=== PATIENT | male | born 1960 | race Caucasian/White ===

== ENCOUNTER → 2019-07-29 14:55 | Outpatient (CLI) | payer OTHER, SELFPAY ==
--- NOTE | 2019-07-29 15:00 | CT_ITS ---
STUDY: CT ABDOMEN AND PELVIS WITHOUT CONTRAST REASON FOR EXAM: Male, 58 years old. [place] RADIATION DOSAGE (If Supplied By Facility): CTDIvol = ( 6.27 ) mGy, DLP = ( 304.08 ) mGycm TECHNIQUE: Transaxial images were obtained from the dome of the diaphragm to the symphysis pubis without oral contrast, and without intravenous contrast. Sagittal and coronal images were reconstructed. Individualized dose optimization techniques were used for this CT. COMPARISON: Comparison is made with prior examination dated December 30, 2011. FINDINGS: The visualized lung bases are unremarkable. The visualized portions of the heart are within normal limits. Stable cysts in the right and left lobe of the liver. The largest cyst is in the left lobe of the liver measuring 2 cm x 2 cm. Normal gallbladder and extrahepatic biliary system. Normal spleen. Normal pancreas. Normal bilateral adrenal glands. A punctate calculus is seen in the mid posterior aspect of the right kidney. There is a 7 mm calculus in the upper pole calyx of the left kidney. There is a 1.5 cm cyst in the lower pole of the left kidney with minimal peripheral calcification posteriorly. There is a small hiatal hernia. Normal small intestine. Normal colon. The appendix is visualized and appears normal. Normal abdominal aorta. Normal inferior vena cava. There is borderline retroperitoneal lymphadenopathy with enlarged nodes no greater than 10mm in the short axis diameter. Normal urinary bladder. Normal abdominal wall. There are degenerative changes of the visualized lumbar spine. CT/Abdomen/Pelvis without Cont IMPRESSION: Stable hepatic cysts. 7 mm calculus in the upper pole cortex of the left kidney. 1.5 cm cyst in the lower pole left kidney with minimal peripheral calcification posteriorly. Follow-up is recommended. Electronically Signed: Tino Charles, at 15:35 EDT , Service support ,
== END ==
PROVIDERS: Referring Provider Urology; Visit Provider Urology
DX: N20.1 Calculus of ureter (principal)
CPT/HCPCS: 74176

== ENCOUNTER 2020-05-22 12:43 | Emergency (ER) | payer OTHER, SELFPAY ==
[2020-05-22 12:45] VITALS: BP 148/98; PULSE 91; RESP 15; TEMP 36.1; O2SAT 99; BMI 22.5
--- NOTE | 2020-05-22 13:04 | CT_ITS ---
STUDY: CT ABDOMEN AND PELVIS WITHOUT CONTRAST REASON FOR EXAM: Male, 59 years old. RIGHT FLANK PAIN RADIATION DOSAGE (If Supplied By Facility): CTDIvol = ( 7.36 ) mGy, DLP = ( 353.52 ) mGycm TECHNIQUE: Transaxial images were obtained from the dome of the diaphragm to the symphysis pubis without oral contrast, and without intravenous contrast. Sagittal and coronal images were reconstructed. Individualized dose optimization techniques were used for this CT. COMPARISON: Comparison is made with prior study dated 07/29/2019. FINDINGS: The visualized lung bases are unremarkable. The visualized portions of the heart are within normal limits. There is a 2.3 cm cyst in the left lobe of the liver. There is also evidence of a 8.4 mm cyst in the anterior aspect of the right lobe. There is also evidence of a 1 cm cyst in the right lobe. Normal gallbladder and extrahepatic biliary system. Normal spleen. Normal pancreas. Normal bilateral adrenal glands. A 2 mm calculus is seen in the upper pole calyx of the right kidney. Small nonobstructive right intrarenal calculus are seen in the lower pole calyx. Stable 1 some mucous cyst in the upper pole of the right kidney. Nonobstructive calculus measuring 8 mm is seen in the upper midportion of the left kidney. Stable 1.5 cm cyst in the anterior aspect of the midportion of the kidney with a rim-like calcification. Normal visualized stomach. Normal small intestine. There are multiple colonic diverticula consistent with diverticulosis. The appendix is visualized and appears normal. Normal abdominal aorta. Normal inferior vena cava. Normal retroperitoneum. Normal urinary bladder. There is enlargement of the prostate gland. It measures 4.2 cm x 4.2 cm. Normal abdominal wall. There are degenerative changes of the visualized lumbar spine. CT/Abdomen/Pelvis without Cont IMPRESSION: Stable hepatic cysts. Nonobstructive bilateral intrarenal calculi. Stable small bilateral renal cysts. Prostatic enlargement. Electronically Signed: Tino Charles, at 14:05 EST , Service support ,
[2020-05-22 13:10] LABS: Absolute Lymphocyte Count 1.21 X10^3/uL (0.83-4.51); Absolute Neutrophil Count 2.5 X10^3/uL (2.0-7.7); Basophil# 0.06 X10^3/uL; Basophil% 1.2 % (0-1); Eosinophils% 7.9 % (0-5); Hematocrit 47.4 % (40-54); Hemoglobin 15.9 g/dL (13.0-16.5); Lymphocyte # 1.21 X10^3/ul (4.0); Lymphocyte % 23.8 % (19-41); Mean Corp Hgb Conc 33.5 g/dL (32-36); Mean Corpuscular Volume 89.4 fL (80-94); Mean Platelet Vol. 10.3 fl (6.2-12.0); Monocyte# 0.87 X10^3/uL; Monocyte% 17.1 % (0-10); NRBC Flagged by Analyzer 0 % (0-5); Neutrophil # 2.52 X10^3/uL (2.7-7.7); Neutrophil % 49.6 % (47-70); Platelet Count 181 K/mm3 (150-450); RBC Distribution Width CV 13.1 % (11.6-14.6); RBC Distribution Width SD 42.5 fl (35.1-43.9); White Blood Count 5.1 K/mm3 (4.4-11.0)
[2020-05-22 13:22] LABS: Anion Gap 3 (5-15); BUN 12 mg/dL (7-18); BUN/Creat Ratio 14.4 RATIO (10-20); Calcium,Total 8.9 mg/dL (8.5-10.1); Chloride 106 mmol/L (98-107); Creatinine, Serum 0.83 mg/dL (0.70-1.30); EST Glomerular Filtration Rate 101 mL/min (>60); Est Glom Filt Rate - Afr Amer 122 mL/min (>60); Estimated Creatinine Clearance 92.12 ml/min; Glucose 103 mg/dL (74-106); Sodium Level 139 mmol/L (136-145)
[2020-05-22 14:31] LABS: Bacteria 0 SEEN /hpf (None Seen); Mucous, Urine 0 SEEN /hpf (<or=2+); Squamous Epithelial Cells - UA 0 SEEN /hpf (0-5); White Blood Cells 0 SEEN /hpf (0-5)
[2020-05-22 14:34] LABS: Color, Urine Yellow (Yellow); Glucose, Dipstick Normal (Normal); Ketone-Dipstick Negative (Negative); Leukocyte Esterase-Dipstick Negative /ul (Negative); Nitrite-Dipstick Negative (Negative); Occult Blood-Urine 25 /ul (Negative); Protein-Dipstick Negative (Negative); Specific Gravity, Urine 1.015 (1.002-1.030); Urine Bilirubin Dipstick Negative (Negative); Urine Clarity Clear (Clear); Urine Urobilinogen Normal (Normal); Urine pH 6.5 (5.0 - 8.0)
--- NOTE | 2020-05-22 15:02 | ED.DCSUM_ITS ---
History of Present Illness Chief Complaint: Flank Pain Narrative: Patient presenting for evaluation secondary to flank pain. Patient reports that this been going on over the course about the last month. He reports that it is a intermittent right-sided flank pain seems to be worse with position changes. Patient denies any radiation of the groin. Denies any fevers nausea vomiting or diarrhea. No dysuria hematuria. He does report that he has had a history of some kidney stones in the past that required intervention, and he was concerned that potentially has a retained stone. Patient states that she has intermittent relief with topical application of medications. Review of systems otherwise negative. Past Medical History - Allergies and Home Meds Allergies/Adverse Reactions: Allergies amoxicillin Allergy (Verified 05/22/20 12:44) PT UNSURE OF REACTION Primary Care Physician: Care Physician,No Primary [Primary Care Provider] - Prior records reviewed: Yes Past Medical History: - - Past history of kidney stones Lives: Spouse/ Significant Other Smoking Status: Never smoker Review of Systems All systems negative except as indicated General: Denies: Chills, Fever, Sweats Eyes: Denies: Visual changes - bilaterally, Diplopia ENT: Denies: Rhinorrhea, Sore throat Cardiovascular: Denies: Chest pain, Palpitations Respiratory: Denies: Dyspnea, Cough, Dyspnea on exertion Gastrointestinal: Denies: Abdominal pain, Nausea, Vomiting, Diarrhea, Melena, Hematochezia Genitourinary: Denies: Dysuria, Hematuria, Frequency Musculoskeletal: Reports: - - Flank pain Skin: Denies: Rash, Wounds Neurological: Denies: Headache, Weakness, Numbness Physical Exam Vital Signs/Narrative: Vital Signs Temp Pulse Resp BP Pulse Ox 05/22/20 12:45 97.0 F L 91 15 148/98 H 99 Inital Vital Signs reviewed: Yes General: Well nourished, Well developed, No Acute Distress Head: Normocephalic, Atraumatic Eyes: Perrl, EOMI ENT: Moist mucous membranes, No rhinorrhea Neck: Supple, Nontender Cardiovascular: Regular rate, Regular rhythm, No murmurs Respiratory: No distress, CTA bilaterally, Chest nontender Abdomen: Soft, Nontender, Nondistended, Normal bowel sounds Back: Normal Inspection, - - Reproducible right paraspinal tenderness to palpation Extremities: Nontender, No edema Skin: Normal color, No rash Neurological: Alert, Oriented x3, Cranial nerves II-XII grossly intact, Normal Strength, Normal Sensation, - - 5 out of 5 strength at the hip knee ankle and foot with normal sensation over all dermatomes. Normal patellar and Achilles reflexes negative clonus. Psychological: Normal affect, Normal Mood Diagnostic/Tx/Re-eval Clinical Impression(s) from Imaging Studies Abdomen/Pelvis CT 05/22/20 13:04 IMPRESSION: Stable hepatic cysts. Nonobstructive bilateral intrarenal calculi. Stable small bilateral renal cysts. Prostatic enlargement. Electronically Signed: Tino Charles, at 14:05 EST , Service support , Laboratory Data 05/22/20 05/22/20 05/22/20 13:00 13:00 14:25 WBC 5.1 RBC 5.30 Hgb 15.9 Hct 47.4 MCV 89.4 MCH 30.0 MCHC 33.5 RDW Std Deviation 42.5 RDW Coeff of Nakul 13.1 Plt Count 181 MPV 10.3 Immature Gran % (Auto) 0.400 Neut % (Auto) 49.6 Lymph % (Auto) 23.8 [place] % (Auto) 17.1 H Eos % (Auto) 7.9 H Baso % (Auto) 1.2 H Absolute Neuts (auto) 2.5 Absolute Lymphs (auto) 1.21 Nucleated RBC % 0 Sodium 139 Potassium 4.0 Chloride 106 Carbon Dioxide 30.0 Anion Gap 3 L BUN 12 Creatinine 0.83 Estim Creat Clear Calc 92.12 Est GFR (MDRD) Af Amer 122 Est GFR (MDRD) Non-Af 101 BUN/Creatinine Ratio 14.4 Glucose 103 Calcium 8.9 Urine Color Yellow Urine Clarity Clear Urine pH 6.5 Ur Specific [place] 1.015 Urine Protein Negative Urine Glucose (UA) Normal Urine Ketones Negative Urine Occult Blood 25 H Urine Nitrite Negative Urine Bilirubin Negative Urine Urobilinogen Normal Ur Leukocyte Esterase Negative Urine RBC 0-5 SEEN Urine WBC 0 SEEN Ur Squamous Epith Cells 0 SEEN Urine Bacteria 0 SEEN Urine Mucus 0 SEEN - Medical Decision Making Patient presented secondary to flank pain. CT imaging did demonstrates evidence of some stones within the patient's kidney, but no evidence of urolithiasis hydronephrosis or acute inflammatory or obstructive pathology. CBC chemistry urinalysis found to be unremarkable. Patient's pain at this point likely is musculoskeletal. I had discussion with patient about symptom control, he would like to try NSAIDs initially he will be provided with a Naprosyn prescription. Patient does also request a potential burst of steroids should the NSAIDs not work. Patient will be provided with a 3-day burst prednisone. Patient was discharged in stable condition. ED Disposition - Plan for ED Patient: Disposition: Home or Assisted Living Diagnosis: Lumbar strain Instructions: ED Back Sprain/Strain Prescriptions: Prednisone [Deltasone] 40 mg PO DAILY #6 tab Prescription Printed Naproxen [Naprosyn] 500 mg PO BID PRN #20 tab Prescription Printed Referrals: José Miguel Bonilla DO [STAFF PHYSICIAN] - As Needed
[2020-05-22 15:04] LABS: Red Blood Cells-Urine 0-5 SEEN /hpf (0-5)
[2020-05-22 15:57] VITALS: RESP 18
== END 2020-05-22 15:58 | disposition home or self-care (01) ==
PROVIDERS: Emergency Provider Emergency Medicine
DX: S39.012A Strain of muscle, fascia and tendon of lower back, initial encounter (principal); X58.XXXA Exposure to other specified factors, initial encounter; Y93.9 Activity, unspecified; Y92.9 Unspecified place or not applicable; Y99.9 Unspecified external cause status; Z87.442 Personal history of urinary calculi
CPT/HCPCS: 74176; 80048; 81001; 85025; 99284; A4216

== ENCOUNTER 2024-06-10 02:39 | Emergency (ER) | payer OTHER, SELFPAY ==
[2024-06-10 02:39] VITALS: BP 171/98; PULSE 48; RESP 16; TEMP 35.9; O2SAT 100; BMI 26.6
[2024-06-10 02:42] VITALS: BP 171/98; PULSE 48; RESP 16; TEMP 35.9; O2SAT 99
--- NOTE | 2024-06-10 02:54 | CT_ITS ---
PROCEDURE: ABDOMEN/PELVIS WITHOUT CONT REASON FOR EXAM: Right-sided flank pain x3 hours. Nausea and vomiting. TECHNIQUE: Abdomen and pelvis CT without intravenous contrast. COMPARISON: None. FINDINGS: Noncontrast technique limits evaluation of the abdominal and pelvic viscera. Lung bases: Bronchiectasis within the visualized lower lobes more conspicuous on the right. There is mild ground-glass opacities within the right lower lobe. Liver: At least 2 hypodensity seen within the liver, largest within the left hepatic lobe measuring u p to 3.5 cm, which could represent liver cysts. Gallbladder: Partially contracted. No calcified gallstones. Spleen: Appears within normal limits. Pancreas: No large pancreatic masses or peripancreatic inflammatory changes. Adrenals: No adrenal masses are identified. Kidneys: 2 obstructing calculi seen within the mid right ureter, measuring 4.5 mm and 2.5 mm. There is associated mild to moderate proximal hydroureter and ewet-dq-[id number] hydronephrosis of the right kidney. Nonobstructiv e renal calculi identified bilaterally, largest on the left superior pole measures up to 7-8 mm and within the right kidney poppy uring 2.5 mm. Mildly complex renal cyst on the left inferiorly measures 2. 2 cm, with thin peripheral calcification. Bladder: Bdur-tm-qsbsrwov distention of the urinary bladder. No bladder calculi are seen. Reproductive Organs: Prostate gland measures 4.2 x 4.8 x 4.7 cm, with central calcification. Bowel: No bowel obstruction is identified. Large bowel is predominantly decompressed. No pericoloni c inflammatory changes. Appendix: Normal. Lymph nodes: No suspicious lymph node enlargement. Vasculature: Major vascular structures are unremarkable. Peritoneum / Retroperitoneum: No ascites. No free air. Bones: Osseous structures are intact. Mild spondylotic change involving the lower lumbar spine. CT/Abdomen/Pelvis without Cont IMPRESSION: 1. Two obstructing calculi seen within the mid right ureter, measuring 4.5 mm a nd 2.5 mm. There is associated hwsp-ci-[id number] proximal hydroureter and bqey-rd-yxfabrks hydronephrosis of the right kidney. 2. Nonobstructive renal calculi identified bilaterally, largest is seen on the left measuring 7-8 mm. 3. Mildly complex renal cyst on the left measures 2.2 cm with thin peripheral c alcification. 4. Prostate gland is mildly enlarged measuring 4.2 x 4.8 x 4.7 cm. Correlate w ith PSA levels. 5. Probable liver cysts, largest within the left hepatic lobe measures 3.5 cm. 6. Bronchiectasis within the visualized lower lung mesa. Mild ground-glass o pacities within the right lower lobe. Correlate for an infectious or inflammatory process. Follow-up to resolution recommended . 7. Additional findings, as detailed above. One or more dose reduction techniques were used (e.g., Automated exposure contr ol, adjustment of the mA and/or kV according to patient size, use of iterative reconstruction technique). Reading [facility]
--- NOTE | 2024-06-10 03:03 | EX.ED.DYSGE1 ---
HPI History of Present Illness Chief Complaint: Flank Pain Informant: patient and friend Narrative Narrative: Sudden right flank pain rating to his right side awakened at 1 AM less than 2 hours ago. Nausea and vomiting. No fever. No urinary symptoms. History kidney stones in the past. States last time was years ago. He did have a procedure performed by urology here. He cannot recall what it was however states there was no stent. No history of kidney injury. Denies gastric ulcers or history of Crohn's or ulcerative colitis. Allergy to amoxicillin. States has sweats. No fevers. Prior similar symptoms: Yes PFSH PFSH Medical History Kidney stones Migraines Home Medications ?Medication ?Instructions ?Recorded ?Last Taken ?Type naproxen 500 mg tablet 500 mg PO BID PRN #20 tabs 05/22/20 Unknown Rx prednisone 20 mg tablet 40 mg (2 x 20 mg) PO DAILY #6 tabs 05/22/20 Unknown Rx cefdinir 300 mg capsule 300 mg PO Q12H #14 caps 06/10/24 Unknown Rx ibuprofen 600 mg tablet 600 mg PO Q6H PRN PRN pain #20 06/10/24 Unknown Rx TABLETS ondansetron 4 mg disintegrating 4 mg PO Q8H PRN PRN Nausea #10 tabs 06/10/24 Unknown Rx tablet oxycodone-acetaminophen 5 mg-325 1 tab PO Q6H PRN PRN Pain 3 days 06/10/24 Unknown Rx mg tablet #12 TABLETS tamsulosin 0.4 mg capsule 0.4 mg PO DAILY #7 CAPSULES 06/10/24 Unknown Rx Allergy/AdvReac Type Severity Reaction Status Date / Time amoxicillin Allergy PT UNSURE Verified 06/10/24 02:40 OF REACTION Social History Smoking Status: Never smoker ROS ROS ED Constitutional Constitutional ED: Denies chills, fever(s) or sweats ENT ENT ED: Denies sore throat Cardiovascular Cardiovascular: Denies chest pain, leg edema, palpitations or racing heartbeat Respiratory/Chest Respiratory/Chest: Denies cough, dyspnea or dyspnea on exertion Gastrointestinal Gastrointestinal: Reports nausea and vomiting; Denies abdominal pain or diarrhea Genitourinary Genitourinary ED: Denies dysuria, hematuria or urinary frequency Musculoskeletal Musculoskeletal: Reports back pain; Denies extremity pain or neck pain Integumentary Denies rash or wounds Neurologic Neurologic: Denies headache(s), paresthesias or weakness EXAM Physical Exam Const Vital Signs: 06/10/24 02:39 06/10/24 02:42 06/10/24 06:25 Temperature 96.6 F L 96.6 F L 97.9 F Temperature Source Temporal Temporal Pulse Rate 48 L 48 L 56 L Respiratory Rate 16 16 18 Blood Pressure 171/98 H 171/98 H 155/46 H Blood Pressure Mean 122 122 82 Pulse Ox 100 99 99 Oxygen Delivery Method Room Air Room Air Positive well nourished and well developed Constitutional Narrative: Uncomfortable, nontoxic. General Appearance ED: well developed HEENT Reports moist mucous membranes normocephalic and atraumatic Eyes General Eye ED: Yes normal appearance of both eyes Neck full ROM Chest Wall Chest: Negative for tenderness Resp normal respiratory effort and normal air movement Effort and Inspection: symmetric chest movement; Negative for respiratory distress Cardio regular rate, regular rhythm and no murmurs Peripheral Pulses: pulses 2+ throughout GI normal to inspection, nondistended, normoactive bowel sounds and non-tender Palpation: Negative for guarding or rebound tenderness present Back/Spine Negative for no CVA tenderness Back/Spine Narrative: No rash Extremity normal to inspection General Extremety ED: Negative for edema or tenderness General Extremity: Negative for edema Neuro oriented x3 and no sensory deficits noted Sensorium / Orientation: awake and alert Skin no rashes or lesions noted and no wounds MDM MDM MDM Narrative Medical decision making narrative: Interventions / MDM: Differential diagnosis: Right renal colic, kidney stone, enlarged prostate, renal cysts, UTI. Diagnosis considered but do not suspect: N/A My EKG interpretation: N/A Imaging independently reviewed and interpreted by myself: CT abdomen pelvis: 4.5 mm along with additional 2.5 mm mid ureteral stone with hydro-. Large prostate. Right renal cyst. Also read by radiology. External documents reviewed: Records in system [address] report of 8 mm mid ureteral stone. He had lithotripsy performed by Dr. Armijo. Test considered but not ordered:N/A ED course: Patient uncomfortable with history kidney stones. Renal colic symptoms. Clinic concerns for kidney stones. IV established labs urine. Fluids, Zofran Toradol morphine for symptom control. CT scan ordered for further evaluation. 0350: Pain controlled at this time white count creatinine normal. Waiting urine. CT scan 2 stones mid ureter largest 4.5 mm. Enlarged prostate right renal cyst. Groundglass changes lower lobes per radiology patient without cough symptoms. At this time system plans for upgrades at 0400. Plan of urine negative, prescription for symptom control with follow-up with his urologist. Return precaution discussed if symptoms not controlled medications. 0600: Patient's urine did return showing some bacteria. He is asymptomatic urine culture sent. Pain remained controlled. Started on antibiotics. He does follow urologist Dr. Armijo. He will call for follow-up with strict return precautions. All questions were answered. Re-evaluation: stable Disposition discussed with patient/family/significant other: Patient Case discussed with consulting clinician: N/A This note was generated with [employer] dictation software. It may contain incorrect words, spelling, and punctuation that were not noted in checking the note before signing. Lab Data Attestation: I reviewed the patient's lab results. Labs: Laboratory Results - last 24 hr 06/10/24 06/10/24 02:53 04:02 WBC 9.0 RBC 5.27 Hgb 15.7 Hct 46.0 MCV 87.3 MCH 29.8 MCHC 34.1 RDW Std Deviation 41.4 RDW Coeff of [place] 12.9 Plt Count 175 MPV 10.6 Immature Gran % (Auto) 0.300 Neut % (Auto) 57.1 Lymph % (Auto) 25.6 [place] % (Auto) 10.4 H Eos % (Auto) 5.9 H Baso % (Auto) 0.7 Absolute Neuts (auto) 5.1 Absolute Lymphs (auto) 2.29 Nucleated RBC % 0 Sodium 141 Potassium 3.3 L Chloride 108 H Carbon Dioxide 29.0 Anion Gap 4 L BUN 17 Creatinine 0.92 Estim Creat Clear Calc 77.84 Est GFR (MDRD) Af Amer 107 Est GFR (MDRD) Non-Af 89 BUN/Creatinine Ratio 18.5 Glucose 141 H Calcium 8.4 L Urine Color Yellow Urine Clarity Clear Urine pH 5.0 Ur Specific [place] 1.025 Urine Protein 30 H Urine Glucose (UA) NEGATIVE Urine Ketones 5 H Urine Occult Blood 250 H Urine Nitrite Negative Urine Bilirubin Negative Urine Urobilinogen Normal Ur Leukocyte Esterase 25 H Urine RBC 5-10 SEEN Urine WBC 10-25 SEEN Ur Squamous Epith Cells 0 SEEN Calcium Oxalate Crystal 1+ Urine Bacteria 3+ Hyaline Casts 0-5 SEEN Urine Mucus RARE Radiography Diagnostic Testing: Clinical Impression(s) from Imaging Studies Abdomen/Pelvis CT 06/10/24 02:54 IMPRESSION: 1. Two obstructing calculi seen within the mid right ureter, measuring 4.5 mm and 2.5 mm. There is associated rklr-cg-dmbmqumv proximal hydroureter and uzjj-il-zoumlxow hydronephrosis of the right kidney. 2. Nonobstructive renal calculi identified bilaterally, largest is seen on the left measuring 7-8 mm. 3. Mildly complex renal cyst on the left measures 2.2 cm with thin peripheral calcification. 4. Prostate gland is mildly enlarged measuring 4.2 x 4.8 x 4.7 cm. Correlate with PSA levels. 5. Probable liver cysts, largest within the left hepatic lobe measures 3.5 cm. 6. Bronchiectasis within the visualized lower lung mesa. Mild ground-glass opacities within the right lower lobe. Correlate for an infectious or inflammatory process. Follow-up to resolution recommended. 7. Additional findings, as detailed above. One or more dose reduction techniques were used (e.g., Automated exposure control, adjustment of the mA and/or kV according to patient size, use of iterative reconstruction technique). Reading Location[facility] Discharge Plan Triage Chief Complaint: Flank Pain ED Provider: Josiah Chu Dx/Rx/DC Orders Clinical Impression: Urolithiasis, Kidney stone on right side, Renal colic on right side, Enlarged prostate, Renal cyst, left, Acute UTI Instructions: ED Kidney Stone with Pain Prescriptions: New oxycodone-acetaminophen 5-325 mg tablet 1 tab PO Q6H PRN PRN (Reason: Pain) 3 Days Qty: 12 0RF tamsulosin 0.4 mg capsule 0.4 mg PO DAILY Qty: 7 0RF ibuprofen 600 mg tablet 600 mg PO Q6H PRN PRN (Reason: pain) Qty: 20 0RF ondansetron 4 mg tablet,disintegrating 4 mg PO Q8H PRN PRN (Reason: Nausea) Qty: 10 0RF cefdinir 300 mg capsule 300 mg PO Q12H Qty: 14 0RF No Action prednisone 20 MG tablet 40 mg PO DAILY Qty: 6 0RF Rx Instructions: With food naproxen 500 MG tablet 500 mg PO BID PRN Qty: 20 0RF Primary Care Provider: Care Physician,No Primary Referrals: Tayo Armijo MD [Med Staff - Active Staff] - 5-7 Days Care Physician,No Primary [Primary Care Provider] - Activity Restrictions/Additional Instructions: 4.5 mm stone and additional 2.5 mm on top noted right mid ureter. Kidney function normal with creatinine at 0.92. White count 9.0. Take medications as prescribed. Flomax daily. Noted enlarged prostate along with the renal cyst on the right side. Follow-up with Dr. Armijo. If you develop worsening symptoms not controlled medications, return to the ED for reevaluation. Print Language: Egyptian Disposition Disposition: Home, Self Care Discharge Date/Time: 06/10/24 05:57
[2024-06-10] MEDS: Ondansetron 4 MG/2 ML Vial IV (03:04)
[2024-06-10 03:05] LABS: Absolute Lymphocyte Count 2.29 X10^3/uL (0.83-4.51); Absolute Neutrophil Count 5.1 X10^3/uL (2.0-7.7); Basophil# 0.06 X10^3/uL; Basophil% 0.7 % (0-1); Eosinophil# 0.53 X10^3/uL; Eosinophils% 5.9 % (0-5); Hemoglobin 15.7 g/dL (13.0-16.5); Lymphocyte # 2.29 X10^3/ul (0.83-4.51); Lymphocyte % 25.6 % (19-41); Mean Corp Hgb Conc 34.1 g/dL (32-36); Mean Corpuscular Hgb 29.8 pg (27.0-32.0); Mean Corpuscular Volume 87.3 fL (80-94); Mean Platelet Vol. 10.6 fl (6.2-12.0); Monocyte# 0.93 X10^3/uL; Monocyte% 10.4 % (0-10); NRBC Flagged by Analyzer 0 % (0-5); Neutrophil # 5.11 X10^3/uL (2.7-7.7); Neutrophil % 57.1 % (47-70); Platelet Count 175 K/mm3 (150-450); RBC Distribution Width CV 12.9 % (11.6-14.6); RBC Distribution Width SD 41.4 fl (35.1-43.9); Red Blood Count 5.27 M/mm3 (4.6-6.2)
[2024-06-10] MEDS: Morphine 4 MG/ML Syringe IV (03:08)
[2024-06-10] MEDS: Ketorolac 15 MG/ML Vial IV (03:08)
[2024-06-10] MEDS: 0.9% Normal Saline (500mL Bag) 500 ML 999 ML IV (03:10)
[2024-06-10 03:33] LABS: Anion Gap 4 (5-15); BUN 17 mg/dL (7-18); BUN/Creat Ratio 18.5 RATIO (10-20); Calcium,Total 8.4 mg/dL (8.5-10.1); Chloride 108 mmol/L (98-107); Creatinine, Serum 0.92 mg/dL (0.70-1.30); EST Glomerular Filtration Rate 89 mL/min (>60); Est Glom Filt Rate - Afr Amer 107 mL/min (>60); Estimated Creatinine Clearance 77.84 ml/min; Glucose 141 mg/dL (74-106); Potassium 3.3 mmol/L (3.5-5.1); Sodium Level 141 mmol/L (136-145)
[2024-06-10] MEDS: Tamsulosin HCl 0.4 MG Capsule PO (03:53)
[2024-06-10 05:50] LABS: Squamous Epithelial Cells - UA 0 SEEN /hpf (0-5)
--- NOTE | 2024-06-10 06:24 | ED.RN ---
see downtime charting.
[2024-06-10 06:25] VITALS: BP 155/46; PULSE 56; RESP 18; TEMP 36.6; O2SAT 99
[2024-06-10 08:01] LABS: Color, Urine Yellow (Yellow); Glucose, Dipstick NEGATIVE (Normal); Ketone-Dipstick 5 mg/dl (Negative); Nitrite-Dipstick Negative (Negative); Protein-Dipstick 30 mg/dl (Negative); Specific Gravity, Urine 1.025 (1.002-1.030); Urine Bilirubin Dipstick Negative (Negative); Urine Clarity Clear (Clear); Urine Urobilinogen Normal (Normal)
[2024-06-10 08:02] LABS: Leukocyte Esterase-Dipstick 25 /ul (Negative); Occult Blood-Urine 250 /ul (Negative)
[2024-06-10 08:04] LABS: Bacteria 3+ /hpf (None Seen); Hyaline Cast 0-5 SEEN /lpf (0-5); Mucous, Urine RARE /hpf (<or=2+); Red Blood Cells-Urine 5-10 SEEN /hpf (0-5); White Blood Cells 10-25 SEEN /hpf (0-5)
[2024-06-10 08:05] LABS: Calcium Oxalate Crystals Ur 1+ /hpf (<or=2+)
== END 2024-06-10 05:57 | disposition home or self-care (01) ==
PROVIDERS: Emergency Provider Emergency Medicine; Visit Provider Emergency Medicine
DX: N13.6 Pyonephrosis (principal); N40.0 Benign prostatic hyperplasia without lower urinary tract symptoms; N28.1 Cyst of kidney, acquired
CPT/HCPCS: 74176; 80048; 81001; 85025; 87086; 96361; 96374; 96375; 99283; A4216; J2405

== ENCOUNTER → 2024-07-13 | Outpatient (CLI) | payer OTHER, SELFPAY ==
--- NOTE | 2024-07-13 10:45 | RAD_ITS ---
EXAM: XR Abdomen, 1 View CLINICAL INDICATION: TECHNIQUE: Frontal supine view of the abdomen/pelvis. COMPARISON: No relevant prior studies available. FINDINGS: GASTROINTESTINAL TRACT: Fecal retention in the colon consistent with constipation. No dilation. BONES/JOINTS: Unremarkable. No acute fracture. RAD/Abdomen Single View IMPRESSION: Fecal retention in the colon consistent with constipation. Reading Location[facility]
== END | disposition home or self-care (01) ==
LOC: RAD 10:34
PROVIDERS: Referring Provider Nurse Practitioner; Visit Provider Nurse Practitioner
DX: N20.0 Calculus of kidney (principal)
CPT/HCPCS: 74018